=== PATIENT | female | born 1970 | race Caucasian/White ===

== ENCOUNTER → 2021-11-07 10:50 | Outpatient (BNVA) | payer BC, SELFPAY | PROVIDERS: Family Provider Family Medicine; PCP Family Medicine; Visit Provider Family Medicine | DX: R68.89 Other general symptoms and signs (principal); Z20.822 Contact with and (suspected) exposure to COVID-19 | CPT/HCPCS: 87635 ==

== ENCOUNTER 2022-09-11 10:53 | Outpatient (CLI) | payer BC, SELFPAY ==
--- NOTE | 2022-09-11 10:55 | XR_ITS ---
WS: [id number] Chest 2 views, 09/11/2022 Clinical Data: worsening dyspnea p 10 days, right rib/pleuritic pain Comparison: None. Findings: No nodules or masses are seen. There is a small right pleural effusion with patchy opacity overlying the surface of the right diaphragm which may represent atelectasis and/or minimal pneumonia . There is minimal atelectasis in the left costophrenic angle. The upper lobes are clear. The heart i s normal. The pulmonary vascularity is not increased. No pneumothorax is seen. XR/XR chest 2V* [id number] Impression: 1. Small right pleural effusion with patchy opacity overlying right diaphragm. 2. Minimal atelectasis at left costophrenic angle.
== END 2022-09-11 10:54 | disposition home or self-care (01) ==
PROVIDERS: PCP Family Medicine; Visit Provider Family Medicine
DX: J18.9 Pneumonia, unspecified organism (principal); J90 Pleural effusion, not elsewhere classified
CPT/HCPCS: 71046

== ENCOUNTER 2022-10-24 09:20 | Outpatient (CLI) | payer BC, SELFPAY ==
--- NOTE | 2022-10-24 09:36 | XR_ITS ---
WS: [id number] Exam: XR chest 2V* [id number] Date/Time of Exam: 10/24/2022 9:51 AM Reason For Exam: f/u exam: partial resolution, now possible recurrence Comparison 09/12/2022. Improving infiltrate and atelectasis in the right lower lobe since prior study. Small residual poste rior right pleural effusion remains. Remaining lung [place] are clear, normal cardiomediastinal silhou ette and regional bony elements. XR/XR chest 2V* [id number] IMPRESSION: 1. Right lower lobe infiltrate and atelectasis almost completely resolved. Smal l residual posterior right pleural effusion.
== END 2022-10-24 09:21 | disposition home or self-care (01) ==
PROVIDERS: PCP Family Medicine; Visit Provider Family Medicine
DX: J18.9 Pneumonia, unspecified organism (principal); J90 Pleural effusion, not elsewhere classified; J98.11 Atelectasis
CPT/HCPCS: 71046

== ENCOUNTER → 2024-01-01 09:49 | Outpatient (BNVA) | payer BC, SELFPAY | PROVIDERS: PCP Family Medicine; Visit Provider Family Medicine | DX: I10 Essential (primary) hypertension (principal) | CPT/HCPCS: 80053; 85025 ==